=== PATIENT | female | born 1985 | race Caucasian/White ===

== ENCOUNTER → 2019-10-29 | Outpatient (CLI) | payer OTHER ==
[2019-10-29 15:47] LABS: RED CELL DISTRIBUTION WIDTH 13.3 % (11.5-14.5)
[2019-10-29 18:20] LABS: ALANINE AMINOTRANSFERASE(ML) 49 U/L (12-78); ALKALINE PHOSPHATASE 98 U/L (50-136); ASPARTATE AMINO TRANSFERASE 26 U/L (0-35); CALCIUM 9.2 mg/dL (8.4-10.5); CARBON DIOXIDE 24.8 mmol/L (20.0-32); CHOLESTEROL 177 mg/dL (120-240); GLUCOSE 117 mg/dL (70-110); HDL CHOLESTEROL 22 mg/dL (32-96)
[2019-10-31 11:23] LABS: ESTRADIOL 10.2 pg/mL (.); FOLLICLE STIMULATING HORMONE 62.8 mIU/mL (.)
== END | disposition home or self-care (01) ==
LOC: LAB 15:23
PROVIDERS: ATTEND Internal Medicine
DX: E03.4 Atrophy of thyroid (acquired) (principal); E34.9 Endocrine disorder, unspecified; E78.5 Hyperlipidemia, unspecified; N95.1 Menopausal and female climacteric states; R73.01 Impaired fasting glucose; R94.5 Abnormal results of liver function studies; R94.4 Abnormal results of kidney function studies; Z79.899 Other long term (current) drug therapy
CPT/HCPCS: 36415; 80053; 80061; 82306; 82607; 82670; 83001; 83036; 84403; 84436; 84439; 84443; 84480; 85027; 86376

== ENCOUNTER 2020-03-22 08:22 | Emergency (ER) | payer OTHER ==
[~2020-03-22] VITALS: Ht 160 cm; Wt 96.6 kg
[2020-03-22 08:40] VITALS: BP 129/78
[2020-03-22 09:04] VITALS: BP_SYST 109
[2020-03-22] MEDS ORDERED: TORADOL IM STA (09:05)
[2020-03-22] MEDS ORDERED: TORADOL ONE (09:16)
--- NOTE | 2020-03-22 09:45 | NUR ---
CT PT TO CT AMBULATING IN STABLE CONDITION.
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
== END 2020-03-22 10:03 | disposition home or self-care (01) ==
LOC: ER 08:22
DX: S00.83XA Contusion of other part of head, initial encounter (principal); I11.0 Hypertensive heart disease with heart failure; I50.9 Heart failure, unspecified; E07.9 Disorder of thyroid, unspecified; Z88.5 Allergy status to narcotic agent; Z88.6 Allergy status to analgesic agent; Z91.040 Latex allergy status; W22.8XXA Striking against or struck by other objects, initial encounter; Y93.89 Activity, other specified; Y92.89 Other specified places as the place of occurrence of the external cause; Y99.0 Civilian activity done for income or pay
CPT/HCPCS: 70450; 96372; 99284; J1885

== ENCOUNTER → 2023-01-24 | Outpatient (CLI) | payer BC ==
[2023-01-24 16:55] LABS: BASOPHIL % 0.3 % (0.0-0.2); EOSINOPHIL # 0.1 10^3/uL (0.0-0.2); EOSINOPHIL % 0.9 % (0.0-5.0); LYMPHOCYTES # 2.54 10^3/uL1 (1.0-4.8); LYMPHOCYTES % 21.9 % (24.0-44.0); MEAN CORP HGB 28.4 pg (26-34); MONOCYTES # 0.9 10^3/uL (0.3-0.8); MONOCYTES % 7.5 % (5.0-12.0); NEUTROPHILS % 69.2 % (41.0-85.0); PLATELET COUNT 308 10^3/uL (150-400); RED CELL DISTRIBUTION WIDTH 14.8 % (11.5-14.5)
[2023-01-24 17:12] LABS: BILIRUBIN,URINE NEGATIVE (NEGATIVE); UROBILINOGEN,URINE 0.2 E.U./dL (0.2)
[2023-01-24 17:20] LABS: CARBON DIOXIDE 28.4 mmol/L (20.0-32)
== END | disposition home or self-care (01) ==
LOC: LAB 16:26
PROVIDERS: ATTEND Internal Medicine
DX: E11.9 Type 2 diabetes mellitus without complications (principal); E03.9 Hypothyroidism, unspecified
CPT/HCPCS: 36415; 80053; 81001; 83036; 83550; 84439; 84443; 84481; 85025; 85651; 86140; 86703; 87086